=== PATIENT | male | born 1995 | race African-American/Black ===

== ENCOUNTER 2017-07-08 08:39 | Emergency (ER) | payer OTHER ==
--- NOTE | 2017-07-08 09:35 | CT ---
CT BRAIN WITHOUT CONTRAST: Date: 07/08/17 FINDINGS: The ventricles are normal in size with no shift. No intracranial bleeding or extra-axial hematoma see n. No sign of stroke, mass, or edema. The calvarium appears intact and the sphenoid sinuses and masto id air cells are clear. IMPRESSION: No acute intracranial findings. POS: HOME
--- NOTE | 2017-07-08 09:45 | CT ---
CT OF THE CERVICAL SPINE: DATE: 07/08/17. FINDINGS: Spiral CT of the cervical spine was done following trauma. Axial slices were acquired, then coronal and sagittal reconstructions were done. There is loss of the normal cervical lordosis which may be due to muscle spasm. No fracture, disloca tion, or disk space narrowing was seen. The C1 to dens distance is normal and the soft tissues are n ormal in thickness. The disk spaces were unremarkable and there was no sign of stenosis at any leve l. IMPRESSION: Loss of the normal cervical lordosis. Exam otherwise unremarkable. POS: HOME
[2017-07-08] MEDS ORDERED: Ibuprofen 200 MG TAB ONE (09:47)
--- NOTE | 2017-07-08 10:11 | RAD ---
LEFT FOOT 3 VIEWS: Date: 07/08/17 FINDINGS: No fracture or periosteal reaction seen. All bones appear intact. There is some soft tissue swelling on the dorsum of the forefoot, but the underlying bones show no gross fracture. IMPRESSION: No acute bony findings. POS: HOME
== END 2017-07-08 09:56 | disposition home or self-care (01) ==
LOC: BURERS 08:39
DX: S93.602A Unspecified sprain of left foot, initial encounter (principal); V43.52XA Car driver injured in collision with other type car in traffic accident, initial encounter
CPT/HCPCS: 70450; 72125